=== PATIENT | female | born 1970 | race Caucasian/White ===

== ENCOUNTER 2019-08-26 20:42 | Inpatient (IN) | payer BC, OTHER ==
[~2019-08-26] VITALS: Ht 170.2 cm; Wt 70.3 kg
[~2019-08-26 20:42] MED LIST: ATOM80CA PO; BUPR300T52 PO; DULO60CA45 PO; ESTRADIOL PO; MULT1CAP34 PO
--- NOTE | 2019-08-26 21:02 | NUR ---
Patient in bed, no acute distress noted. Awaiting ER MD evaluation.
[2019-08-26 21:40] LABS: BASOPHILS % (AUTO) 0.3 % (0.0-2.0); EOSINOPHILS # (AUTO) 0.1 K/uL (0.0-0.7); EOSINOPHILS % (AUTO) 1.6 % (0.0-7.0); HEMATOCRIT 38.8 % (31.2-41.9); HEMOGLOBIN 13.5 g/dL (10.9-14.3); LYMPHOCYTES # (AUTO) 3.4 K/uL (20.0-40.0); LYMPHOCYTES % (AUTO) 38.6 % (20.5-51.5); MEAN CORPUSCULAR HEMOGLOBIN 31.6 uug (24.7-32.8); MEAN CORPUSCULAR HGB CONC 35 g/dL (32.3-35.6); MEAN CORPUSCULAR VOLUME 90.8 fL (75.5-95.3); MONOCYTES # (AUTO) 0.5 K/uL (2.0-10.0); MONOCYTES % (AUTO) 5.6 % (0.0-11.0); NEUTROPHILS # (AUTO) 4.7 K/uL (1.8-8.9); NEUTROPHILS % (AUTO) 53.9 % (38.5-71.5); PLATELET COUNT (AUTO) 320 K/uL (179-408); RED BLOOD CELL COUNT(AUTO) 4.27 MIL/uL (3.63-4.92); WHITE BLOOD COUNT (AUTO) 8.7 K/uL (3.8-11.8)
[2019-08-26 21:46] LABS: CREATININE 0.9 mg/dL (0.6-1.3); POTASSIUM 3.8 mmol/L (3.5-5.1)
--- NOTE | 2019-08-26 22:03 | NUR ---
Pt. admitted to [facility] , under care of Dr. Rdz. Report given to Vipin TAO. Belongs List completed
[2019-08-26] MEDS ORDERED: ALPR0.5T PO (22:07)
[2019-08-26] MEDS ORDERED: ESTR0.5T PO (22:07)
[2019-08-26] MEDS ORDERED: ATOM60CA PO (22:07)
[2019-08-26] MEDS ORDERED: DEXT5TAB15 PO (22:07)
[2019-08-26] MEDS ORDERED: ARIP5TAB10 PO (22:07)
[2019-08-26] MEDS ORDERED: DULO60CA45 PO (22:07)
[2019-08-26] MEDS ORDERED: ATOR10TA PO (22:07)
[2019-08-26] MEDS ORDERED: ALPRAZOLAM 0.5 MG TABLET PO PRN (22:15)
[2019-08-26 22:18] LABS: BILIRUBIN,DIRECT 0.1 mg/dL (0.0-0.2); BILIRUBIN,TOTAL 0.4 mg/dL (0.2-1.0); TOTAL PROTEIN, SERUM 6.5 g/dL (6.4-8.2)
[2019-08-26] MEDS ORDERED: ACETAMINOPHEN 325 MG TABLET PO PRN (22:30)
[2019-08-26] MEDS ORDERED: ONDANSETRON 4 MG/2 ML VIAL IV PRN (22:30)
[2019-08-26] MEDS ORDERED: HYDROCODONE/APAP 5-325MG TABLET PO PRN (22:30)
--- NOTE | 2019-08-26 22:30 | NUR ---
ADMITTED PATIENT ALERT ORIENTED, NO SOB NO CHEST PAIN, TELE MONITOR SINUS RHYTHM AT THIS TIME. PATIENT COMPLAIN OF SMALL PAIN, BUT TOLERABLE. PATIENT BRP, ON RA, ORIENTED PATIENT TO CALL LIGHT AND BATHROOM, COMPLAIN OF ANXIETY, WILL MEDICATED ORDERED, CONT TO MONITOR.
[2019-08-26 22:43] VITALS: BP 118/83
[2019-08-27] VITALS: BP 109/80
[2019-08-27] MEDS ORDERED: DULOXETINE 60 MG CAPSULE.DR PO SCH (06:00)
[2019-08-27 06:55] LABS: BILIRUBIN,TOTAL 0.3 mg/dL (0.2-1.0); CREATININE 0.8 mg/dL (0.6-1.3); MAGNESIUM 1.9 mg/dL (1.8-2.4)
[2019-08-27 06:58] LABS: BASOPHILS % (AUTO) 0.3 % (0.0-2.0); EOSINOPHILS # (AUTO) 0.1 K/uL (0.0-0.7); EOSINOPHILS % (AUTO) 2.1 % (0.0-7.0); HEMATOCRIT 37.2 % (31.2-41.9); LYMPHOCYTES % (AUTO) 43.7 % (20.5-51.5); MEAN CORPUSCULAR HGB CONC 35 g/dL (32.3-35.6); MEAN CORPUSCULAR VOLUME 91.6 fL (75.5-95.3); MONOCYTES # (AUTO) 0.4 K/uL (2.0-10.0); MONOCYTES % (AUTO) 6.3 % (0.0-11.0); NEUTROPHILS # (AUTO) 3.3 K/uL (1.8-8.9); NEUTROPHILS % (AUTO) 47.6 % (38.5-71.5); PLATELET COUNT (AUTO) 275 K/uL (179-408); RED BLOOD CELL COUNT(AUTO) 4.06 MIL/uL (3.63-4.92); WHITE BLOOD COUNT (AUTO) 6.9 K/uL (3.8-11.8)
[2019-08-27] MEDS ORDERED: PANTOPRAZOLE SODIUM 40 MG TABLET.DR PO SCH (07:00)
[2019-08-27 07:40] LABS: THYROID STIMULATING HORMONE 1.585 mIU/mL (0.358-3.740)
[2019-08-27] MEDS ORDERED: ATOMOXETINE HCL 60 MG PO SCH (09:00)
[2019-08-27] MEDS ORDERED: ESTRADIOL 1 MG TABLET PO SCH (09:00)
[2019-08-27] MEDS ORDERED: Medication Not On Formulary EA (Multivitamins (Multivitamin) 1 EACH) PO SCH (09:00)
[2019-08-27] MEDS ORDERED: MULTIVITAMINS,THERAPEUTIC TABLET PO SCH (09:00)
[2019-08-27] MEDS ORDERED: ASPIRIN EC 81 MG TABLET.DR PO SCH (09:00)
[2019-08-27 11:50] VITALS: BP 118/75
[2019-08-27 16:12] VITALS: BP 111/76
--- NOTE | 2019-08-27 16:45 | NUR ---
IV D/C'D ALL HOME INSTRUCTIONS REVIEWED WITH PT. DISCHARGED TO BY RN.
[2019-08-27] MEDS ORDERED: ARIPIPRAZOLE 5 MG TABLET PO SCH (21:00)
[2019-08-27] MEDS ORDERED: ATORVASTATIN 10 MG TABLET PO SCH (21:00)
[2019-08-27] MEDS ORDERED: DOCUSATE SODIUM 100 MG CAPSULE PO SCH (21:00)
== END 2019-08-27 17:15 | disposition home or self-care (01) | DRG 206 ==
LOC: ER 20:42 → TELE3 22:10 → MEDSURG3 08-27 16:31
PROVIDERS: ADMIT Internal Medicine; ATTEND Internal Medicine
DX: M94.0 Chondrocostal junction syndrome [Tietze] (principal); J45.20 Mild intermittent asthma, uncomplicated; E78.5 Hyperlipidemia, unspecified; F41.9 Anxiety disorder, unspecified; F32.9 Major depressive disorder, single episode, unspecified; Z87.890 Personal history of sex reassignment; Z85.820 Personal history of malignant melanoma of skin; Z79.899 Other long term (current) drug therapy; Z83.3 Family history of diabetes mellitus; Z87.891 Personal history of nicotine dependence
CPT/HCPCS: 36415; 70030-TC; 71045; 83735; 84100; 84443; 85025; 85730; 93005; A4663; G0378